=== PATIENT | female | born 1975 | race Caucasian/White ===

== ENCOUNTER 2018-01-24 03:22 | Observation (INO) ==
[2018-01-24] MEDS ORDERED: Naloxone 0.4 MG/ML INJ IVP PRN (07:32)
[2018-01-24] MEDS ORDERED: *HR* OxyCODONE Immed Rel 5 MG TABLET PO PRN (07:34)
[2018-01-24] MEDS ORDERED: *HR* HYDROcodone/Acet 5/325 mg TABLET PO PRN (07:34)
[2018-01-24] MEDS ORDERED: Acetaminophen 325 MG TABLET PO PRN (07:34)
[2018-01-24] MEDS ORDERED: *HR* EPINEPHrine 0.3 MG/0.3 ML (PEN) IM PRN (08:22)
[2018-01-24] MEDS ORDERED: Triamcinolone Acet 0.1% CRM 1 APPL GRAM TP PRN (08:22)
[2018-01-24] MEDS ORDERED: Maxitrol Opth OINT 3.5 GM TUBE BOTH EYES PRN (08:22)
[2018-01-24] MEDS ORDERED: hydrOXYzine pamoate 25 MG CAPSULE PO PRN (08:22)
[2018-01-24] MEDS ORDERED: LYSINE 1000 MG PO PRN (08:22)
--- NOTE | 2018-01-24 08:43 | Internal Med History&Physical ---
Date of Encounter: 01/24/18 Time of Encounter: 08:30 Internal Medicine - H&P: HPI Chief complaint: Right-sided chest pain and abdominal pain Admitted From: Emergency Dept Plans for Post Hospital Care: Home History of present illness: Ms. Lino is a 43 year old female patient with history of asthma, chronic back pain on multiple narcotic medications at home presented to the ER with complaints of pain in her right chest and abdomen. She had laparoscopic cholecystectomy done yesterday for biliary dyskinesia. She was then discharged home. She did eat [place] hamburgers and cheese sandwich yesterday afternoon. She also complained of shortness of breath but that seems to have improved now. She continues to have pain mainly in the right chest especially with coughing or taking deep breaths. She also reports that she has not passed gas or had a bowel movement since her surgery. Past Med Surg Social Fam HX - Past Medical History Attestation: Yes The following information was validated with the patient. Source: patient Medical history: asthma, cancer, fibromyalgia, GERD, hypertension, migraine, other Additional medical history: cervical cancer Psychiatric history: anxiety, depression - Past Surgical History Additional surgical history: laparoscopy ovarian cystectomy. tumor removed on left side of face. cryotherapy of the cervix. Dr bedolla burnt R shoulder nerve and lower R back ablation. Tubal ligation. Back surgery. Uterine ablation. 3 Laprascopies - Social History Smoking Status: Current every day smoker Smokeless Tobacco Status: No Alcohol use: none Drug use: none - Family History Mother Living Status: Still Living Hx Family Cardiac Disorders: Yes (irregular heart beat) Father Living Status: Still Living Hx Family Cardiac Disorders: Yes (HTN) Internal Medicine - H&P: Meds Albuterol Sulfate [Ventolin Hfa] 2 puff PO Q4H PRN 01/23/18 [History] Atenolol [Tenormin] 25 mg PO DAILY 01/23/18 [History] Cyclobenzaprine [Flexeril] 10 mg PO BID PRN 01/23/18 [History] Dicyclomine [Bentyl] 20 mg PO DAILY 01/23/18 [History] EPINEPHrine [Epipen] 0.3 mg IM ONCE PRN 01/23/18 [History] Ergocalciferol (VITAMIN D2) [Drisdol (50,000 Unit)] 50,000 unit PO SA 01/23/18 [ History] Folic Acid 1 mg PO DAILY 01/23/18 [History] HYDROcodone/Acet 5/325 mg [[place] 5-325 mg] 1 tab PO BID PRN 01/23/18 [History] Ibuprofen [Ibu] 800 mg PO TID PRN 01/23/18 [History] Loratadine [Claritin] 10 mg PO DAILY 01/23/18 [History] Modafinil [Provigil] 100 mg PO BID 01/23/18 [History] OxyCODONE/APAP 5/325 [Percocet 5/325 MG] 1 each PO Q6HR PRN 7 Days #14 tablet [Rx] Pantoprazole Sodium [Protonix] 40 mg PO DAILY 01/23/18 [History] Paroxetine [Paxil] 20 mg PO DAILY 01/23/18 [History] Potassium Chloride [Klor-Con 10] 10 meq PO TID 01/23/18 [History] Spironolactone [Aldactone] 100 mg PO DAILY 01/23/18 [History] Topiramate [Topamax] 100 mg PO BID 01/23/18 [History] buPROPion HCl [Zyban] 150 mg PO DAILY 01/23/18 [History] hydrOXYzine HCl [Hydroxyzine HCl] 25 mg PO Q8H PRN 01/23/18 [History] hydroCHLOROthiazide [Hydrochlorothiazide] 25 mg PO DAILY 01/23/18 [History] traZODone [TraZODone] 150 mg PO HS 01/23/18 [History] Carboxymethylcellulose Sodium [Refresh Plus] 1 each OP DAILY 01/24/18 [History] Lysine 1,000 mg PO DAILY PRN 01/24/18 [History] Milnacipran HCl [Savella] 100 mg PO BID 01/24/18 [History] Dario/Poly/DEX Opth OINT [Maxitrol OPTH Oint] 1 drop BOTH EYES HS PRN 01/24/18 [ History] Triamcinolone Acet 0.1% CRM [Kenalog] 1 appl TP BID PRN 01/24/18 [History] 3 Allergy/AdvReac Type Severity Reaction Status Date / Time adhesive Allergy Severe Blister Verified 01/24/18 00:01 Sulfa (Sulfonamide Allergy Severe Hives Verified 01/24/18 00:01 Antibiotics) sulfamethoxazole Allergy Severe Hives, Verified 01/24/18 00:01 [From Bactrim] shortness of breath trimethoprim [From Bactrim] Allergy Severe Hives, Verified 01/24/18 00:01 shortness of breath bee venom protein (honey bee) Allergy Swelling Verified 01/24/18 00:01 of Lip/Tongue/Throat COBAN Allergy Rash Uncoded 01/24/18 00:01 All Systems PM: A 10-system review of systems was performed and is negative for pertinent findings except as documented above in the HPI. - Constitutional Constitutional: no chills, no fever(s), no night sweats - EENT Eyes: no change in vision, no discharge, no pain, no photophobia Ears: no ear discharge, no ear pain, no tinnitus Nose, mouth and throat: no dysphagia, no nasal discharge, no neck pain, no sore throat - Cardiovascular Cardiovascular ROS IM: no chest pain, no diaphoresis, no dyspnea, no lightheadedness, no palpitations, no syncope - Respiratory Respiratory: cough, pain on inspiration, no dyspnea, no wheezing, no excessive phlegm production - Gastrointestinal Gastrointestinal: nausea, vomiting, no abdominal pain, no diarrhea, no hematemesis, no hematochezia, no melena - Genitourinary Genitourinary: no change in urinary stream, no dysuria, no flank pain, no hematuria - Musculoskeletal Musculoskeletal ROS IM: no numbness, no tingling - Integumentary Integumentary IM: no rash, no unusual bruising - Neurological Neurological ROS: no confusion, no convulsions, no focal weakness, no numbness, no tingling, no tremor(s) - Hematologic/Lymphatic Hematologic/Lymphatic: no easy bruising - Constitutional Vitals: Temp Pulse Resp BP Pulse Ox 98.8 F 83 15 125/76 96 01/24/18 05:11 01/24/18 05:11 01/24/18 05:11 01/24/18 05:11 01/24/18 05:11 General appearance: Present: cooperative, mild distress, A&O X 3, answers questions appropriately - Neck Neck exam general surgery: Present: supple, trachea midline. Absent: lymphadenopathy - Respiratory Respiratory exam: Present: CTAB. Absent: accessory muscle use, rales, rhonchi, wheezes - Cardiovascular Cardiovascular exam: Present: RRR, +S1, +S2. Absent: diastolic murmur, gallop, rubs, systolic murmur - GI/Abdominal GI/Abdominal exam: Present: normal bowel sounds, soft, tenderness (Right upper quadrant), no peritoneal signs. Absent: distended - Extremities Exam Extremities exam: Present: warm, radial pulses palpable and symmetrical. Absent : calf tenderness, cyanotic, pedal edema - Neurological Exam Neurological exam: Present: CN II-XII intact, oriented X3, no focal deficits. Absent: facial droop, speech deficit - Skin Skin exam: Present: dry, intact Internal Med - H&P Results - Impressions Chest x-ray and CT of the gram of the chest did not show any acute process - Assessment and plan (1) Status post cholecystectomy Current Visit: Yes Status: Acute Assessment and plan: Patient presenting with pain in the right upper quadrant and right chest worsening with deep breaths. Most likely related to laparoscopic cholecystectomy. WBC count is slightly elevated. We will monitor for now. Consult surgery. Pain control (2) Asthma Current Visit: Yes Status: Acute Assessment and plan: Continue bronchodilators as needed Qualifiers: Asthma severity: mild Asthma persistence: intermittent Asthma complication type: uncomplicated Qualified Code(s): J45.20 - Mild intermittent asthma, uncomplicated (3) Abdominal pain Current Visit: Yes Status: Acute Assessment and plan: Related to laparoscopic cholecystectomy done yesterday. Symptomatic management. Keep nothing by mouth for now pending surgery evaluation. Qualifiers: Abdominal location: right upper quadrant Qualified Code(s): R10.11 - Right upper quadrant pain (4) Atypical chest pain Current Visit: Yes Status: Acute Assessment and plan: Right-sided pleuritic chest pain. Most likely related laparoscopic cholecystectomy. We will treat symptomatically. - Time Spent With Patient Total time spent is greater than 50% in coordination of care (as documented) at patient's floor/unit and/or counseling patient:
[2018-01-24] MEDS ORDERED: Loratadine 10 MG TABLET PO SCH (09:00)
[2018-01-24] MEDS ORDERED: Topiramate 100 MG TABLET PO SCH (09:00)
[2018-01-24] MEDS ORDERED: Ringers Solution, Lactated 1,000 ML IVC SCH (09:00)
[2018-01-24] MEDS ORDERED: Folic Acid 1 MG TABLET PO SCH (09:00)
[2018-01-24] MEDS ORDERED: Milnacipran Hcl [Savella] 100 MG PO SCH (09:00)
[2018-01-24] MEDS ORDERED: Artificial Tears SOLN 15 ML BOTTLE OP SCH (09:00)
[2018-01-24] MEDS ORDERED: BuPROPion SR (12 HR) 150 MG TABLET PO SCH (09:00)
[2018-01-24] MEDS ORDERED: hydroCHLOROthiazide 25 MG TABLET PO SCH (09:00)
[2018-01-24 10:05] VITALS: BP 101/66
--- NOTE | 2018-01-24 13:14 | General Surgery Consult Note ---
Date of Encounter: 01/24/18 Time of Encounter: 13:08 Assessment and Plan (1) Status post cholecystectomy Status: Acute She is status post laparoscopic cholecystectomy on 01/23/2018 for biliary dyskinesia. After eating 3 [place] sandwiches and a cheese sandwich, she began having right upper quadrant pain. She presented to the emergency department where she underwent a CT a of the chest which revealed no evidence of pulmonary embolism and nonspecific gallbladder fossa with no acute findings. Her symptoms are most likely consistent with gas pains after surgery as well as rapid advancement of her diet. I did review the above with the patient and recommended her decreasing her diet to full liquids and possibly bland soft diet. She has also advised to ambulate 2 to 3 minutes at least once an hour to help absorb the small amount of gas that 's likely retained. She verbalized understanding. She is encouraged to continue use of her incentive spirometry which she stated adherence. She may continue her home medications and is okay for discharge from a surgical standpoint. She has a follow-up previously scheduled in the office and is recommended to keep disappointment. Surgery will sign off at this time. Thank you for allowing us to participate in Miss Lino's care. Please call or reconsult if further questions or needs arise. (2) Abdominal pain Status: Acute Qualifiers: Abdominal location: right upper quadrant Qualified Code(s): R10.11 - Right upper quadrant pain History of Present Illness Consult date: 01/24/18 (Dr. Juan R Rubio) Reason for consult: abdominal pain Requesting physician: Jayden Pratt History of present illness: Liv is a 43 -year-old female with (past medical, surgica, and social history reviewed per [place]) and a pertinent history of a laparoscopic cholecystectomy on 01/23/[address] for [address] dyskines[address] by Dr. Rubio. She was discharged home and stated she ate 3 [place] hamburgers in the cheese sandwich. She began having right upper quadrant pain and shortness of breath associated with difficulty taking a deep breath. She returned to the emergency department on 01/23/2018 where she underwent a chest x-ray and CTA which did not indicate any pulmonary emboli. She was admitted for further work up. Presently she states that her symptoms have resolved and she is hungry. She denies n/v/d, fever, or chills. She does report a cough with "nasty stuff coming up." She endorses a smoking history. Past Med Surg Social Fam HX - Past Medical History Medical history: asthma, cancer, fibromyalgia, GERD, hypertension, migraine, other Additional medical history: cervical cancer Psychiatric history: anxiety, depression - Past Surgical History Additional surgical history: laparoscopy ovarian cystectomy. tumor removed on left side of face. cryotherapy of the cervix. Dr bedolla burnt R shoulder nerve and lower R back ablation. Tubal ligation. Back surgery. Uterine ablation. 3 Laprascopies - Social History Smoking Status: Current every day smoker Smokeless Tobacco Status: No Alcohol use: none Drug use: none - Family History Mother Living Status: Still Living Hx Family Cardiac Disorders: Yes (irregular heart beat) Father Living Status: Still Living Hx Family Cardiac Disorders: Yes (HTN) Medications and Allergies Albuterol Sulfate [Ventolin Hfa] 2 puff PO Q4H PRN 01/23/18 [History] Atenolol [Tenormin] 25 mg PO DAILY 01/23/18 [History] Cyclobenzaprine [Flexeril] 10 mg PO BID PRN 01/23/18 [History] Dicyclomine [Bentyl] 20 mg PO DAILY 01/23/18 [History] EPINEPHrine [Epipen] 0.3 mg IM ONCE PRN 01/23/18 [History] Ergocalciferol (VITAMIN D2) [Drisdol (50,000 Unit)] 50,000 unit PO SA 01/23/18 [ History] Folic Acid 1 mg PO DAILY 01/23/18 [History] HYDROcodone/Acet 5/325 mg [[place] 5-325 mg] 1 tab PO BID PRN 01/23/18 [History] Ibuprofen [Ibu] 800 mg PO TID PRN 01/23/18 [History] Loratadine [Claritin] 10 mg PO DAILY 01/23/18 [History] Modafinil [Provigil] 100 mg PO BID 01/23/18 [History] OxyCODONE/APAP 5/325 [Percocet 5/325 MG] 1 each PO Q6HR PRN 7 Days #14 tablet [Rx] Pantoprazole Sodium [Protonix] 40 mg PO DAILY 01/23/18 [History] Paroxetine [Paxil] 20 mg PO DAILY 01/23/18 [History] Potassium Chloride [Klor-Con 10] 10 meq PO TID 01/23/18 [History] Spironolactone [Aldactone] 100 mg PO DAILY 01/23/18 [History] Topiramate [Topamax] 100 mg PO BID 01/23/18 [History] buPROPion HCl [Zyban] 150 mg PO DAILY 01/23/18 [History] hydrOXYzine HCl [Hydroxyzine HCl] 25 mg PO Q8H PRN 01/23/18 [History] hydroCHLOROthiazide [Hydrochlorothiazide] 25 mg PO DAILY 01/23/18 [History] traZODone [TraZODone] 150 mg PO HS 01/23/18 [History] Carboxymethylcellulose Sodium [Refresh Plus] 1 each OP DAILY 01/24/18 [History] Lysine 1,000 mg PO DAILY PRN 01/24/18 [History] Milnacipran HCl [Savella] 100 mg PO BID 01/24/18 [History] Dario/Poly/DEX Opth OINT [Maxitrol OPTH Oint] 1 drop BOTH EYES HS PRN 01/24/18 [ History] Triamcinolone Acet 0.1% CRM [Kenalog] 1 appl TP BID PRN 01/24/18 [History] 3 Allergy/AdvReac Type Severity Reaction Status Date / Time adhesive Allergy Severe Blister Verified 01/24/18 00:01 Sulfa (Sulfonamide Allergy Severe Hives Verified 01/24/18 00:01 Antibiotics) sulfamethoxazole Allergy Severe Hives, Verified 01/24/18 00:01 [From Bactrim] shortness of breath trimethoprim [From Bactrim] Allergy Severe Hives, Verified 01/24/18 00:01 shortness of breath bee venom protein (honey bee) Allergy Swelling Verified 01/24/18 00:01 of Lip/Tongue/Throat COBAN Allergy Rash Uncoded 01/24/18 00:01 Review of Systems All systems PM: reviewed and no additional remarkable complaints except as stated All systems PM: The remainder of the systems were reviewed and are negative General Surgery Exam Initial Vital Signs Temp Pulse Resp BP Pulse Ox 98.8 F 83 15 125/76 96 01/24/18 05:11 01/24/18 05:11 01/24/18 05:11 01/24/18 05:11 01/24/18 05:11 VITAL SIGNS: Reviewed. See [facility] GENERAL: In no apparent distress. HEENT: Normocephalic, atraumatic, pupils are equal and reactive, extraocular motions intact, oropharynx is pink and moist, there is no neck adenopathy or JVD noted. CHEST/RESPIRATORY: The thorax is free from signs of trauma. Lung sounds: course , decreased CARDIAC: Regular rate and rhythm. Normal S1 and S2, without murmurs, gallops, or rubs. VASCULAR: No Edema. 2+ peripheral pulses. ABDOMEN: soft, expected postoperative tenderness, hypoactive bowel sounds. There is a very small amount of ecchymosis around the umbilicus which is expected after surgery. There are no S/S of cellulitis or infection present. Incisions are clean, dry, and intact. MUSCULOSKELETAL: Good range of motion of all major joints. Extremities without clubbing, cyanosis or edema. NEUROLOGIC EXAM: Alert and oriented x 3. Speech normal. Follows commands. PSYCHIATRIC: Mood normal. SKIN: No rash or lesions. Exam Initial Vital Signs Temp Pulse Resp BP Pulse Ox 98.8 F 83 15 125/76 96 01/24/18 05:11 01/24/18 05:11 01/24/18 05:11 01/24/18 05:11 01/24/18 05:11 Results - Labs All other labs normal. - Imaging CT scan - chest: report reviewed Consult Discharge Plan - Plan Instructions: Acute Abdominal Pain (DC) Referrals: Diane Domínguez CNP [Advanced Practice Nurse] - 02/05/18 1:15 pm
--- NOTE | 2018-01-24 14:00 | Discharge Summary ---
Orders not resulted at time of discharge: Pending orders 01/25/18 04:00 Basic Metabolic Panel AM 0400 Complete Blood Count [HEME] AM 0400 Date of Encounter: 01/24/18 Time of Encounter: 13:57 - Discharge Diagnosis (1) Status post cholecystectomy Priority: Primary Status: Acute (2) Asthma Priority: Secondary Status: Acute Qualifiers: Asthma severity: mild Asthma persistence: intermittent Asthma complication type: uncomplicated Qualified Code(s): J45.20 - Mild intermittent asthma, uncomplicated (3) Abdominal pain Priority: Secondary Status: Acute Qualifiers: Abdominal location: right upper quadrant Qualified Code(s): R10.11 - Right upper quadrant pain (4) Atypical chest pain Priority: Secondary Status: Acute Hospital course: Ms. Lino is a 43 year old female patient hospitalized with abdominal pain and right-sided chest pain related to laparoscopic cholecystectomy done yesterday. Doing better now and has been cleared for discharge from a surgical standpoint. He will be discharged today. Patient was in the hospital for less than 8 hours and sulfa so her. Discharge discussed with: patient, nurse, literacy consultant - Time Spent with Patient Total time spent providing and/or coordinating discharge services: Less than 30 minutes (20 min) - Discharge Medications Home Medications: Albuterol Sulfate [Ventolin Hfa] 2 puff PO Q4H PRN 01/23/18 [History] Atenolol [Tenormin] 25 mg PO DAILY 01/23/18 [History] Cyclobenzaprine [Flexeril] 10 mg PO BID PRN 01/23/18 [History] Dicyclomine [Bentyl] 20 mg PO DAILY 01/23/18 [History] EPINEPHrine [Epipen] 0.3 mg IM ONCE PRN 01/23/18 [History] Ergocalciferol (VITAMIN D2) [Drisdol (50,000 Unit)] 50,000 unit PO SA 01/23/18 [ History] Folic Acid 1 mg PO DAILY 01/23/18 [History] HYDROcodone/Acet 5/325 mg [[place] 5-325 mg] 1 tab PO BID PRN 01/23/18 [History] Ibuprofen [Ibu] 800 mg PO TID PRN 01/23/18 [History] Loratadine [Claritin] 10 mg PO DAILY 01/23/18 [History] Modafinil [Provigil] 100 mg PO BID 01/23/18 [History] OxyCODONE/APAP 5/325 [Percocet 5/325 MG] 1 each PO Q6HR PRN 7 Days #14 tablet [Rx] Pantoprazole Sodium [Protonix] 40 mg PO DAILY 01/23/18 [History] Paroxetine [Paxil] 20 mg PO DAILY 01/23/18 [History] Potassium Chloride [Klor-Con 10] 10 meq PO TID 01/23/18 [History] Spironolactone [Aldactone] 100 mg PO DAILY 01/23/18 [History] Topiramate [Topamax] 100 mg PO BID 01/23/18 [History] buPROPion HCl [Zyban] 150 mg PO DAILY 01/23/18 [History] hydrOXYzine HCl [Hydroxyzine HCl] 25 mg PO Q8H PRN 01/23/18 [History] hydroCHLOROthiazide [Hydrochlorothiazide] 25 mg PO DAILY 01/23/18 [History] traZODone [TraZODone] 150 mg PO HS 01/23/18 [History] Carboxymethylcellulose Sodium [Refresh Plus] 1 each OP DAILY 01/24/18 [History] Lysine 1,000 mg PO DAILY PRN 01/24/18 [History] Milnacipran HCl [Savella] 100 mg PO BID 01/24/18 [History] Dario/Poly/DEX Opth OINT [Maxitrol OPTH Oint] 1 drop BOTH EYES HS PRN 01/24/18 [ History] Triamcinolone Acet 0.1% CRM [Kenalog] 1 appl TP BID PRN 01/24/18 [History] Allergies/Adverse Reactions: 3 Allergy/AdvReac Type Severity Reaction Status Date / Time adhesive Allergy Severe Blister Verified 01/24/18 00:01 Sulfa (Sulfonamide Allergy Severe Hives Verified 01/24/18 00:01 Antibiotics) sulfamethoxazole Allergy Severe Hives, Verified 01/24/18 00:01 [From Bactrim] shortness of breath trimethoprim [From Bactrim] Allergy Severe Hives, Verified 01/24/18 00:01 shortness of breath bee venom protein (honey bee) Allergy Swelling Verified 01/24/18 00:01 of Lip/Tongue/Throat COBAN Allergy Rash Uncoded 01/24/18 00:01 Date of admission: 01/24/18 04:54 Consults: 01/24/18 05:17 Consult to Nutrition [CONS] Routine Comment: Consulting Provider: NUTRITION Reason for Dietary Consult: MST Score 01/24/18 07:34 Consult to Surgery [CONS] Routine Consulting Provider: Surgery [facility] Reason for Consult: Abd pain/ lap vivi done by yesterday Time Notified: 07:35 Call Completed: Yes Discharging clinician: Jayden Pratt Anticipated date of discharge: 01/24/18 - Constitutional Vitals: Temp Pulse Resp BP Pulse Ox 97.6 F 75 15 101/66 97 01/24/18 10:03 01/24/18 10:03 01/24/18 10:03 01/24/18 10:03 01/24/18 10:03 General appearance: Present: cooperative, mild distress, A&O X 3, answers questions appropriately - Respiratory Respiratory exam: Present: CTAB. Absent: accessory muscle use, rales, rhonchi, wheezes - Cardiovascular Cardiovascular exam: Present: RRR, +S1, +S2. Absent: diastolic murmur, gallop, rubs, systolic murmur - GI/Abdominal GI/Abdominal exam: Present: normal bowel sounds, soft, tenderness (Right upper quadrant), no peritoneal signs. Absent: distended - Patient Status Disposition: Home, Self-Care Condition: Good Functional capacity at discharge: independent ambulation Overall status at discharge: patient is progressing back to baseline - Discharge Instructions Follow Up With: Juan R Rubio DO [Partnered Physician] - (As previously scheduled) - Diet and Activity Activity: increase activity as tolerated Diet: low fat, low cholesterol
[2018-01-24] MEDS ORDERED: *HR* Heparin 5,000 UNIT/ML VIAL SQ SCH (18:00)
[2018-01-24] MEDS ORDERED: traZODone 50 MG TABLET PO SCH (21:00)
== END 2018-01-24 14:27 | disposition home or self-care (01) ==
LOC: 3ANU
PROVIDERS: ADMIT Internal Medicine; ATTEND Internal Medicine